=== PATIENT | female | born 1940 | race Caucasian/White ===

== ENCOUNTER 2018-12-26 14:43 | Emergency (ER) | payer MEDICARE, OTHER, SELFPAY ==
[2018-12-26 14:47] VITALS: BP 118/69; PULSE 139; RESP 15; TEMP 36.2; O2SAT 100
--- NOTE | 2018-12-26 14:54 | DI.RAD.S_ITS ---
PROCEDURE: XR CHEST 1V INDICATIONS: afib TECHNIQUE: One view of the chest was acquired. COMPARISON: None. FINDINGS: Surgical changes and devices: None. Lungs and pleura: Lungs are clear. No pleural effusions or pneumothorax. Mediastinum: Mediastinal contours appear normal. Heart size is normal. There is aortic atherosclerosis. Bones and chest wall: No suspicious bony lesions. Overlying soft tissues appear unremarkable. IMPRESSION: Unremarkable chest. No acute cardiopulmonary process is evident. Dictated by: Emmanuel Turner M.D. on 12/26/2018 at 14:23 Approved by: Emmanuel Turner M.D. on 12/26/2018 at 14:37
[2018-12-26 15:12] LABS: Add Manual Diff / Slide Review NO; Basophils Absolute Auto 100 /uL (0-100); Basophils Percent Auto 0.9 % (0-2); Eosinophils Absolute Auto 0 /uL (0-450); Eosinophils Percent Auto 0.2 % (2-4); Hematocrit 41.3 % (36-46); Lymphocytes Absolute Auto 1500 /uL (1100-4500); Lymphocytes Percent Auto 16.4 % (25-40); Mean Corpuscular HGB Conc 33.8 % (30-36); Mean Corpuscular Hemoglobin 30.3 PG (26-34); Mean Corpuscular Volume 89.4 fL (80-100); Monocytes Absolute Auto 700 /uL (0-900); Monocytes Percent Auto 7.8 % (3-14); Neutrophils Absolute Auto 6700 /uL (1500-7000); Neutrophils Percent Auto 74.7 % (50-75); Platelet Count 215 X10^3/uL (150-400); Red Blood Cell Count 4.62 X10^6/uL (4.0-5.2); Red Cell Distribution Width 14.1 % (11.6-14.8); White Blood Cell Count 8.9 X10^3/uL (4.5-11.0)
--- NOTE | 2018-12-26 15:21 | ED_ITS ---
HPI - Arrhythmia/Palpitations General Chief Complaint: Arrhythmia/Palpitations Stated Complaint: Rapid Heart rate and chest pain sent from [facility] Time Seen by Provider: 12/26/18 15:18 Source: patient Mode of arrival: ambulatory Limitations: no limitations History of Present Illness HPI narrative: Patient a 78-year-old female who presents with heart palpitations. She has a history of atrial fibrillation, she states that just started in November of 2018. She was given metoprolol she says she converted back to sinus rhythm started taking an aspirin daily she has not had any problems until today. She swam 60 laps today and started her heart beating irregular. His she states that she does check her heart rate while swimming usually about 72 today was much more she felt an ache in her left shoulder just like she did previously. [place]. She continues to be in atrial fibrillation rate 130. MD complaint: rapid heart beat and heart racing Duration: constant Arrhythmia history: atrial fibrillation Related Data Home Medications Medication Instructions Recorded Confirmed aspirin 325 mg PO DAILY 12/26/18 12/26/18 clindamycin phosphate 1 applic TOPICAL DIRECTED 12/26/18 12/26/18 levothyroxine [Synthroid] 50 mcg PO DAILY 12/26/18 12/26/18 metoprolol tartrate 25 mg PO DAILY 12/26/18 12/26/18 Allergies Allergy/AdvReac Type Severity Reaction Status Date / Time Penicillins [PENICILLINS] Allergy Intermediate hives Verified 12/26/18 16:06 Review of Systems Review of Systems ROS Unobtainable: All systems reviewed & are unremarkable except as noted in HPI and below Constitutional Denies chills, Denies fever(s), Denies lethargy and Denies weakness Eyes Denies change in vision, Denies eye discharge, Denies irritation and Denies loss of vision ENT Ears, Nose, Mouth, and Throat: Denies change in voice, Denies neck pain and Denies sore throat Cardiovascular Reports as per HPI, Denies dyspnea and Denies dyspnea on exertion Respiratory Denies cough, Denies dyspnea, Denies dyspnea on exertion and Denies wheezing Gastrointestinal Gastrointestinal: Denies abdominal pain, Denies change in bowel habits, Denies diarrhea, Denies nausea and Denies vomiting Genitourinary Denies hematuria, Denies flank pain, Denies urinary incontinence and Denies urinary urgency Musculoskeletal Denies neck pain Integumentary/Breasts Denies pruritus, Denies erythema, Denies rash and Denies wounds Neurologic Denies loss of vision and Denies weakness Allergic/Immunologic Denies wheezing [facility] Medical History (Updated 12/26/18 @ 17:00 by Inez Chance DO) Atrial fibrillation (Acute) Surgical History (Updated 01/29/18 @ 06:35 by Conversion Provider) History of cataract removal with insertion of prosthetic lens Status post hysterectomy Family History (Updated 03/07/17 @ 00:00 by Conversion Provider) Father Diabetes mellitus Heart disease Social History (Updated 12/26/18 @ 16:00 by Inez Chance DO) Smoking Status: Never smoker alcohol intake: never substance use type: does not use Family History (Updated 03/07/17 @ 00:00 by Conversion Provider) Father Diabetes mellitus Heart disease Social History (Updated 12/26/18 @ 16:00 by Inez Chance DO) Smoking Status: Never smoker alcohol intake: never substance use type: does not use Exam Initial Vital Signs Initial Vital Signs: Vital Signs Temperature 97.1 F L 12/26/18 14:47 Pulse Rate 139 H 12/26/18 14:47 Respiratory Rate 15 12/26/18 14:47 Blood Pressure 118/69 12/26/18 14:47 Pulse Oximetry 100 12/26/18 14:47 GENERAL: Well-appearing, well-nourished and in no acute distress. HEENT: Head atraumatic,EOMI, pupils reactive, CARDIOVASCULAR: Irregular tachycardic RESPIRATORY: Breath sounds equal bilaterally, no wheezes rales or rhonchi. ABDOMEN: Soft, nontender. Normoactive bowel sounds all 4 quadrants. No guarding or rebound. EXTREMITIES: Normal range of motion, no clubbing or edema. Neurovascularly intact NEUROLOGICAL: Alert and oriented x4.Normal gait and speech. Cranial nerves II through XII grossly intact. SKIN: Warm, dry, no laceration, no petechiae, no rashes or lesions. Scores CHADS-VASc Congestive heart failure: no Hypertension: no Age 75 years or older: yes Diabetes mellitus: no Stroke, TIA, or TE: no Vascular disease: no Age 65 to 74 years: no Sex category (female): Female CHADS-VASc Score: 3 Course Orders Ordered: Discontinued Medications Diltiazem HCl (Cardizem) 20 mg IV NOW ONE Stop: 12/26/18 15:50 Last Admin: 12/26/18 15:55 Dose: 20 mg Sodium Chloride (Normal Saline 0.9%) 1,000 mls @ 1,000 mls/hr IV BOLUS ONE Stop: 12/26/18 16:48 Last Infusion: 12/26/18 17:02 Dose: 0 mls/hr Admin: 12/26/18 15:55 Dose: 1,000 mls/hr Vital Signs - 8 hr 12/26/18 14:47 12/26/18 15:55 12/26/18 16:07 Temperature 97.1 F L Pulse Rate 139 H 144 H 88 Respiratory Rate 15 16 15 Blood Pressure 118/69 103/60 Blood Pressure [Right Arm] 130/65 119/65 Pulse Oximetry 100 100 100 12/26/18 16:42 12/26/18 16:46 Temperature Pulse Rate 59 L 62 Respiratory Rate 15 15 Blood Pressure Blood Pressure [Right Arm] 92/51 L 109/52 L Pulse Oximetry 99 99 MDM - Arrhythmia/Palpitations Lab Data Attestation: I reviewed the patient's lab results. Result diagrams: 12/26/18 15:00 12/26/18 15:00 Lab Results 12/26/18 12/26/18 12/26/18 Range/Units 15:00 15:00 15:00 WBC 8.9 (4.5-11.0) X10^3/uL RBC 4.62 (4.0-5.2) X10^6/uL Hgb 14.0 (12.0-16.0) g/dL Hct 41.3 (36-46) % MCV 89.4 (80-100) fL MCH 30.3 (26-34) PG MCHC 33.8 (30-36) % RDW 14.1 (11.6-14.8) % Plt Count 215 (150-400) X10^3/uL Neut % (Auto) 74.7 (50-75) % Lymph % (Auto) 16.4 L (25-40) % Starr % (Auto) 7.8 (3-14) % Eos % (Auto) 0.2 L (2-4) % Baso % (Auto) 0.9 (0-2) % Neut # (Auto) 6700 (0135-1929) /uL Lymph # (Auto) 1500 (6916-7839) /uL Starr # (Auto) 700 (0-900) /uL Eos # (Auto) 0 (0-450) /uL Baso # (Auto) 100 (0-100) /uL Sodium 140 (137-145) mmol/L Potassium 4.0 (3.4-5.1) mmol/L Chloride 106 (98-107) mmol/L Carbon Dioxide 26 (22-32) mmol/L BUN 25 H (7-17) mg/dL Creatinine 0.80 (0.52-1.04) mg/dL Estimated GFR > 60.0 (>60) mL/min BUN/Creatinine Ratio 31.3 H (6-22) Glucose 132 H (80-110) mg/dL Calcium 9.5 (8.4-10.2) mg/dL Magnesium 2.1 (1.6-2.3) mg/dL Total Creatine Kinase 60 (30-135) U/L CK-MB (CK-2) TNP CK-MB (CK-2) Rel Index TNP Troponin I < 0.012 (0.01-0.034) ng/mL TSH 3.39 (0.47-4.68) uIU/mL Imaging Data Chest x-ray: Radiologist's impression: PROCEDURE: XR CHEST 1V INDICATIONS: afib TECHNIQUE: One view of the chest was acquired. COMPARISON: None. FINDINGS: Surgical changes and devices: None. Lungs and pleura: Lungs are clear. No pleural effusions or pneumothorax. Mediastinum: Mediastinal contours appear normal. Heart size is normal. There is aortic atherosclerosis. Bones and chest wall: No suspicious bony lesions. Overlying soft tissues appear unremarkable. IMPRESSION: Unremarkable chest. No acute cardiopulmonary process is evident. Dictated by: Emmanuel Turner M.D. on 12/26/2018 at 14:23 Approved by: Emmanuel Turner M.D. on 12/26/2018 at 14:37 ECG Data Attestation: I personally reviewed and interpreted this ECG as follows: Prior ECG tracings: not available for review Interpretation: 1. Atrial fibrillation rate [address] changes. EKG 2. Sinus rhythm rate 58 VT interval [address] changes no T-wave inversions MDM Narrative Medical decision making narrative: Patient was given Cardizem on IV fluids and converted on her own. Patient has an appointment with perianesthesia nurse in a week or 2. Dr. Campo At this time recommend she continue her current regimen of metoprolol and aspirin. Patient understands risk of stroke and returning to the ED if symptoms worsen Discharge Plan Departure Patient Disposition: Home Clinical Impression: Atrial fibrillation Qualifiers: Atrial fibrillation type: paroxysmal Qualified Code(s): I48.0 - Paroxysmal atrial fibrillation Discharge Date/Time: 12/26/18 17:11 Interventions: ED Discharge Assessment Last Done: 12/26/18 17:03 Instructions: DI for Atrial Fibrillation Activity Restrictions/Additional Instructions: *You have been diagnosed with atrial fibrillation *What to do: You may need further medication adjustment please talk of about this with her perianesthesia nurse or PCP *Continue to take medications as directed -aspirin 81 mg once a day *Follow up with your primary care provider in 2-3 days *Return to ER if you should have heart palpitations, dizziness, lightheadedness, shortness of or any new, worsening or concerning symptoms Prescriptions: No Action levothyroxine [Synthroid] 50 mcg tablet 50 mcg PO DAILY RF: 0 clindamycin phosphate 1 % lotion 1 applic topical DIRECTED RF: 0 metoprolol tartrate 25 mg tablet 25 mg PO DAILY RF: 0 aspirin 325 mg Tablet 325 mg PO DAILY RF: 0 Referrals: Bernarda Wood MD [Primary Care Provider] -
[2018-12-26 15:25] LABS: BUN Creatinine Ratio 31.3 (6-22); Blood Urea Nitrogen 25 mg/dL (7-17); Calcium 9.5 mg/dL (8.4-10.2); Carbon Dioxide 26 mmol/L (22-32); Chloride 106 mmol/L (98-107); Creatine Kinase 60 U/L (30-135); Estimated Glomerular Filt Rate > 60.0 mL/min (>60); Glucose 132 mg/dL (80-110); HEMOLYSIS < 15 (0-50); Magnesium 2.1 mg/dL (1.6-2.3); Sodium 140 mmol/L (137-145)
[2018-12-26 15:36] LABS: Troponin I < 0.012 ng/mL (0.01-0.034)
[2018-12-26 15:55] VITALS: BP 103/60; BP 130/65; PULSE 135; PULSE 144; RESP 16; O2SAT 100
[2018-12-26] MEDS: dilTIAZem 5 MG/ML SDV 20 MG IV (15:55)
[2018-12-26] MEDS: SODIUM CHLORIDE 0.9% 1,000 ML 1000 ML IV (15:55)
[2018-12-26 16:06] LABS: Thyroid Stimulating Hormone 3.39 uIU/mL (0.47-4.68)
[2018-12-26 16:07] VITALS: BP 119/65; PULSE 88; RESP 15; O2SAT 100
[2018-12-26 16:42] VITALS: BP 92/51; PULSE 59; RESP 15; O2SAT 99
[2018-12-26 16:46] VITALS: BP 109/52; PULSE 62; RESP 15; O2SAT 99
== END 2018-12-26 17:11 | disposition home or self-care (01) ==
PROVIDERS: Emergency Provider Emergency Medicine; PCP Family Medicine
DX: I48.0 Paroxysmal atrial fibrillation (principal)
CPT/HCPCS: 36591; 71045; 80048; 82550; 83735; 84443; 84484; 85025; 93005; 96361; 96374; 99283; 99285

== ENCOUNTER → 2021-08-02 10:04 | Outpatient (CLI) | payer MEDICARE, OTHER, SELFPAY ==
[2021-08-02 19:23] LABS: BUN Creatinine Ratio 30.3 (6-22); Blood Urea Nitrogen 23 mg/dL (7-17); Calcium 9.4 mg/dL (8.4-10.2); Carbon Dioxide 31 mmol/L (22-32); Chloride 103 mmol/L (98-107); Estimated Glomerular Filt Rate > 60.0 mL/min (>60); Glucose 79 mg/dL (80-110); HEMOLYSIS 35 (0-50); Potassium 4.5 mmol/L (3.4-5.1); Sodium 140 mmol/L (137-145)
== END ==
PROVIDERS: PCP Family Medicine; Visit Provider Nurse Practitioner
DX: Z51.81 Encounter for therapeutic drug level monitoring (principal); Z79.899 Other long term (current) drug therapy
CPT/HCPCS: 80048

== ENCOUNTER → 2021-11-22 11:07 | Outpatient (CLI) | payer MEDICARE, OTHER, SELFPAY ==
[2021-11-22 19:16] LABS: BUN Creatinine Ratio 28.6 (6-22); Blood Urea Nitrogen 22 mg/dL (7-17); Calcium 9.6 mg/dL (8.4-10.2); Carbon Dioxide 35 mmol/L (22-32); Chloride 104 mmol/L (98-107); Estimated Glomerular Filt Rate > 60.0 mL/min (>60); Glucose 90 mg/dL (80-110); HEMOLYSIS < 15 (0-50); Potassium 4.4 mmol/L (3.4-5.1); Sodium 139 mmol/L (137-145)
[2021-11-22 19:45] LABS: Thyroid Stimulating Hormone 2.85 uIU/mL (0.47-4.68)
== END ==
PROVIDERS: Nurse Practitioner; PCP Family Medicine; Visit Provider Family Medicine
DX: E03.9 Hypothyroidism, unspecified (principal); Z51.81 Encounter for therapeutic drug level monitoring; Z79.899 Other long term (current) drug therapy
CPT/HCPCS: 80048; 84443

== ENCOUNTER → 2022-02-14 09:20 | Outpatient (CLI) | payer MEDICARE, OTHER, SELFPAY ==
[2022-02-14 19:09] LABS: BUN Creatinine Ratio 27.2 (6-22); Blood Urea Nitrogen 22 mg/dL (7-17); Calcium 9.3 mg/dL (8.4-10.2); Carbon Dioxide 30 mmol/L (22-32); Chloride 103 mmol/L (98-107); Estimated Glomerular Filt Rate > 60 mL/min (>60); Glucose 129 mg/dL (80-110); HEMOLYSIS 16 (0-50); Potassium 4.4 mmol/L (3.4-5.1); Sodium 139 mmol/L (137-145)
== END ==
PROVIDERS: PCP Family Medicine; Visit Provider Nurse Practitioner
DX: Z51.81 Encounter for therapeutic drug level monitoring (principal); Z79.899 Other long term (current) drug therapy
CPT/HCPCS: 80048

== ENCOUNTER → 2022-05-15 11:53 | Outpatient (CLI) | payer MEDICARE, OTHER, SELFPAY ==
[2022-05-15 21:21] LABS: Alanine Aminotransferase 29 IU/L (<35); Albumin 3.7 g/dL (3.5-5.0); Albumin Globulin Ratio 1.3 (1.0-2.8); Alkaline Phosphatase 71 U/L (38-126); Aspartate Aminotransferase 37 IU/L (14-36); BUN Creatinine Ratio 29.9 (6-22); Bilirubin Total 0.4 mg/dL (0.2-1.3); Blood Urea Nitrogen 26 mg/dL (7-17); Calcium 9.1 mg/dL (8.4-10.2); Carbon Dioxide 31 mmol/L (22-32); Chloride 101 mmol/L (98-107); Estimated Glomerular Filt Rate > 60 mL/min (>60); Globulin 2.8 g/dL (1.7-4.1); Glucose 110 mg/dL (80-110); HEMOLYSIS < 15 (0-50); Potassium 4.6 mmol/L (3.4-5.1); Sodium 137 mmol/L (137-145); Total Protein 6.5 g/dL (6.3-8.2)
== END ==
PROVIDERS: PCP Family Medicine; Visit Provider Nurse Practitioner Acute Care
DX: Z51.81 Encounter for therapeutic drug level monitoring (principal); Z79.01 Long term (current) use of anticoagulants; Z79.899 Other long term (current) drug therapy
CPT/HCPCS: 80053

== ENCOUNTER → 2022-08-02 10:25 | Outpatient (CLI) | payer MEDICARE, OTHER, SELFPAY ==
[2022-08-02 19:47] LABS: Alanine Aminotransferase 29 IU/L (<35); Albumin 3.6 g/dL (3.5-5.0); Albumin Globulin Ratio 1.2 (1.0-2.8); Alkaline Phosphatase 82 U/L (38-126); Aspartate Aminotransferase 37 IU/L (14-36); BUN Creatinine Ratio 31.1 (6-22); Bilirubin Total 0.4 mg/dL (0.2-1.3); Blood Urea Nitrogen 28 mg/dL (7-17); Calcium 9.1 mg/dL (8.4-10.2); Carbon Dioxide 32 mmol/L (22-32); Chloride 101 mmol/L (98-107); Estimated Glomerular Filt Rate > 60 mL/min (>60); Globulin 2.9 g/dL (1.7-4.1); Glucose 93 mg/dL (80-110); HEMOLYSIS < 15 (0-50); Potassium 4.7 mmol/L (3.4-5.1); Sodium 138 mmol/L (137-145); Total Protein 6.5 g/dL (6.3-8.2)
== END ==
PROVIDERS: PCP Family Medicine
DX: Z51.81 Encounter for therapeutic drug level monitoring (principal); Z79.01 Long term (current) use of anticoagulants; Z79.899 Other long term (current) drug therapy
CPT/HCPCS: 80053

== ENCOUNTER → 2022-10-19 09:05 | Outpatient (CLI) | payer MEDICARE, OTHER, SELFPAY ==
[2022-10-19 20:29] LABS: Add Manual Diff / Slide Review NO; Alanine Aminotransferase 41 IU/L (<35); Alkaline Phosphatase 87 U/L (38-126); Aspartate Aminotransferase 48 IU/L (14-36); BUN Creatinine Ratio 26.7 (6-22); Basophils Absolute Auto 0 /uL (0-100); Basophils Percent Auto 0.4 % (0-2); Bilirubin Total 0.6 mg/dL (0.2-1.3); Blood Urea Nitrogen 23 mg/dL (7-17); Calcium 9.2 mg/dL (8.4-10.2); Carbon Dioxide 32 mmol/L (22-32); Chloride 102 mmol/L (98-107); Cholesterol 227 mg/dL (140-199); Eosinophils Absolute Auto 100 /uL (0-450); Eosinophils Percent Auto 1.4 % (2-4); Estimated Glomerular Filt Rate > 60 mL/min (>60); Glucose 87 mg/dL (80-110); HDL Cholesterol 80 mg/dL (40-60); HEMOLYSIS < 15 (0-50); Hematocrit 38.1 % (36-46); Hemoglobin 12.4 g/dL (12.0-16.0); LDL Cholesterol Calculated 136 mg/dL (<100); Lymphocytes Absolute Auto 1200 /uL (1100-4500); Lymphocytes Percent Auto 23.3 % (25-40); Magnesium 2.3 mg/dL (1.6-2.3); Mean Corpuscular HGB Conc 32.6 % (30-36); Mean Corpuscular Hemoglobin 29.7 PG (26-34); Monocytes Absolute Auto 700 /uL (0-900); Monocytes Percent Auto 14.5 % (3-14); Neutrophils Absolute Auto 3000 /uL (1500-7000); Neutrophils Percent Auto 60.4 % (50-75); Platelet Count 167 X10^3/uL (150-400); Potassium 4.6 mmol/L (3.4-5.1); Red Blood Cell Count 4.18 X10^6/uL (4.0-5.2); Red Cell Distribution Width 14.3 % (11.6-14.8); Sodium 139 mmol/L (137-145); Total Protein 6.9 g/dL (6.3-8.2); Triglycerides 54 mg/dL (35-150); White Blood Cell Count 4.9 X10^3/uL (4.5-11.0)
[2022-10-19 20:51] LABS: Free T4, Direct Thyroxine 1.37 ng/dL (0.78-2.19)
[2022-10-19 21:05] LABS: Thyroid Stimulating Hormone 3.58 uIU/mL (0.47-4.68)
[2022-10-20 16:53] LABS: Albumin 3.9 g/dL (3.5-5.0); Albumin Globulin Ratio 1.3 (1.0-2.8)
== END ==
PROVIDERS: PCP Family Medicine; Visit Provider Nurse Practitioner
DX: I48.0 Paroxysmal atrial fibrillation (principal); I10 Essential (primary) hypertension; I48.20 Chronic atrial fibrillation, unspecified; Z79.01 Long term (current) use of anticoagulants; Z79.899 Other long term (current) drug therapy
CPT/HCPCS: 80053; 80061; 83735; 84439; 84443; 85025

== ENCOUNTER → 2022-11-15 14:31 | Outpatient (CLI) | payer MEDICARE, OTHER, SELFPAY ==
[2022-11-15 19:42] LABS: C-Reactive Protein Quant < 0.5 mg/dL (<1.0)
[2022-11-15 19:58] LABS: Erythrocyte Sedimentation Rate 18 MM/HR (0-20)
[2022-11-15 20:14] LABS: Ferritin 42 ng/mL (11-264)
[2022-11-16 16:16] LABS: Hepatitis B Surface Antigen NEGATIVE s/c (NEGATIVE)
[2022-11-16 17:40] LABS: Hep C Virus Ab w/Reflex Quant REACTIVE s/c (NEGATIVE)
[2022-11-21 15:42] LABS: ANA Screen, IFA Negative (.)
== END ==
PROVIDERS: PCP Family Medicine; Visit Provider Family Medicine
DX: M25.552 Pain in left hip (principal); R79.89 Other specified abnormal findings of blood chemistry; Z82.49 Family history of ischemic heart disease and other diseases of the circulatory system; G89.29 Other chronic pain
CPT/HCPCS: 82728; 85651; 86038; 86140; 86803; 87340; 87522

== ENCOUNTER → 2023-01-31 10:25 | Outpatient (CLI) | payer MEDICARE, OTHER, SELFPAY ==
[2023-01-31 20:13] LABS: BUN Creatinine Ratio 25.8 (6-22); Blood Urea Nitrogen 23 mg/dL (7-17); Calcium 9.2 mg/dL (8.4-10.2); Carbon Dioxide 31 mmol/L (22-32); Chloride 100 mmol/L (98-107); Estimated Glomerular Filt Rate > 60 mL/min (>60); Glucose 89 mg/dL (80-110); HEMOLYSIS < 15 (0-50); Potassium 4.7 mmol/L (3.4-5.1); Sodium 137 mmol/L (137-145)
== END ==
PROVIDERS: PCP Family Medicine; Visit Provider Nurse Practitioner
DX: I48.0 Paroxysmal atrial fibrillation (principal); Z51.81 Encounter for therapeutic drug level monitoring; Z79.899 Other long term (current) drug therapy
CPT/HCPCS: 80048

== ENCOUNTER → 2023-03-01 11:49 | Outpatient (CLI) | payer MEDICARE, OTHER, SELFPAY ==
[2023-03-01 19:54] LABS: Add Manual Diff / Slide Review NO; Basophils Absolute Auto 0 /uL (0-100); Basophils Percent Auto 0.3 % (0-2); Eosinophils Absolute Auto 100 /uL (0-450); Eosinophils Percent Auto 2.1 % (2-4); Hematocrit 36.2 % (36-46); Hemoglobin 12.3 g/dL (12.0-16.0); Lymphocytes Absolute Auto 1200 /uL (1100-4500); Lymphocytes Percent Auto 17.2 % (25-40); Mean Corpuscular HGB Conc 34.1 % (30-36); Mean Corpuscular Hemoglobin 30.4 PG (26-34); Monocytes Absolute Auto 1200 /uL (0-900); Monocytes Percent Auto 17.2 % (3-14); Neutrophils Absolute Auto 4400 /uL (1500-7000); Neutrophils Percent Auto 63.2 % (50-75); Platelet Count 181 X10^3/uL (150-400); Red Blood Cell Count 4.07 X10^6/uL (4.0-5.2); Red Cell Distribution Width 14.2 % (11.6-14.8); White Blood Cell Count 6.9 X10^3/uL (4.5-11.0)
[2023-03-01 20:05] LABS: Alanine Aminotransferase 19 IU/L (<35); Albumin 3.8 g/dL (3.5-5.0); Albumin Globulin Ratio 1.2 (1.0-2.8); Alkaline Phosphatase 75 U/L (38-126); Aspartate Aminotransferase 31 IU/L (14-36); BUN Creatinine Ratio 31.3 (6-22); Bilirubin Total 0.4 mg/dL (0.2-1.3); Blood Urea Nitrogen 26 mg/dL (7-17); Calcium 9.1 mg/dL (8.4-10.2); Carbon Dioxide 31 mmol/L (22-32); Chloride 98 mmol/L (98-107); Estimated Glomerular Filt Rate > 60 mL/min (>60); Globulin 3.1 g/dL (1.7-4.1); Glucose 83 mg/dL (80-110); HEMOLYSIS < 15 (0-50); Potassium 4.8 mmol/L (3.4-5.1); Sodium 135 mmol/L (137-145); Total Protein 6.9 g/dL (6.3-8.2)
[2023-03-01 20:33] LABS: TSH w/ Reflex to FT4 2.62 uIU/mL (0.47-4.68)
== END ==
PROVIDERS: PCP Family Medicine; Visit Provider Family Medicine
DX: I34.0 Nonrheumatic mitral (valve) insufficiency (principal); I10 Essential (primary) hypertension; R79.89 Other specified abnormal findings of blood chemistry; E78.2 Mixed hyperlipidemia; R74.8 Abnormal levels of other serum enzymes; Z79.899 Other long term (current) drug therapy; E03.9 Hypothyroidism, unspecified
CPT/HCPCS: 80053; 84443; 85025

== ENCOUNTER → 2023-03-07 14:18 | Outpatient (CLI) | payer MEDICARE, OTHER, SELFPAY ==
--- NOTE | 2023-03-07 14:20 | DI.RAD.S_ITS ---
Bone Density Report Name: BROOK BEJARANO Age: 82 Sex: Female Ethnicity: White Date of : 1940 Indication: postmenopausal; screening for osteoporosis; prior fracture; Referring Provider: LORETTA REYNOSO Study: Bone densitometry was performed. Exam Date: March 07, 2023 Accession number: [id number] Bone Density: Region BMD T-score Z-score Classification AP Spine(L1-L4) 0.899 -1.3 1.4 Osteopenia Femoral Neck (Left) 0.777 -0.7 1.7 Normal Total Hip (Left) 0.652 -2.4 -0.3 Osteopenia Femoral Neck (Right) 0.763 -0.8 1.6 Normal Total Hip (Right) 0.622 -2.6 -0.5 Osteoporosis Total Hip Mean 0.637 -2.5 -0.4 Osteoporosis World Health Organization criteria for BMD impression classify patients as: Normal (T-score at or above -1.0), Osteopenia (T-score between -1.0 and -2.5), or Osteoporosis (T-score at or below -2.5). 10-year Fracture Risk: FRAX not reported because: Some T-score for Spine Total or Hip Total or Femoral Neck at or below -2.5 Prior hip or vertebral fracture Impression: The patient has established osteoporosis, based on the Right Total Hip T-score and the existence of a prior fracture. The patient has risk factors, including: previous fracture. Discussion: HIGH RISK OF FRACTURE. BONE DENSITY IS UNDESIRABLY LOW AT ONE OR MORE SKELETAL SITES, CONSISTENT WITH POSTMENOPAUSAL OSTEOPOROSIS. This patient's lowest T-score, in a patient who has previously fractured, meets the World Health Organization's (WHO) criteria for severe osteoporosis. In untreated patients, the risk of osteoporotic fracture increases approximately two-fold for each 1.0 SD decrease in T-score. Low bone density is not the only risk factor for fracture; also consider factors such as patient's age, frailty or poor health, risk of falling, risk of injury, previous osteoporotic fracture, family history of osteoporosis, cigarette smoking, low body weight, etc. Not everyone with low bone mineral density has osteoporosis; osteomalacia and other metabolic bone disorders should also be considered. Patients who have osteoporosis should be evaluated for specific diseases and conditions (secondary causes) that may cause or contribute to bone loss. The [place] Association [employer] Endocrinologists (AACE) and National Osteoporosis Foundation (NOF) recommend pharmacologic intervention for all postmenopausal women with a previous hip or vertebral fracture and a T-score in this range. The patient should follow a healthful lifestyle (good nutrition with adequate calcium and vitamin D, and appropriate weight-bearing exercise). Follow-Up: Consider a repeat BMD and Vertebral Fracture Assessment (VFA) exam in 2 years or sooner if medically necessary, to reassess this patient's status. Reported by: YULISSA LEVINE MD on 03/07/2023 2:39:00 PM.
== END ==
PROVIDERS: PCP Family Medicine; Referring Provider Family Medicine; Visit Provider Family Medicine
DX: Z78.0 Asymptomatic menopausal state (principal); Z13.820 Encounter for screening for osteoporosis; M81.0 Age-related osteoporosis without current pathological fracture
CPT/HCPCS: 77080

== ENCOUNTER → 2023-04-11 14:40 | Outpatient (CLI) | payer MEDICARE, OTHER, SELFPAY ==
[2023-04-11 19:44] LABS: BUN Creatinine Ratio 36.6 (6-22); Blood Urea Nitrogen 30 mg/dL (7-17); Calcium 9.2 mg/dL (8.4-10.2); Carbon Dioxide 31 mmol/L (22-32); Chloride 99 mmol/L (98-107); Estimated Glomerular Filt Rate > 60 mL/min (>60); Glucose 85 mg/dL (80-110); HEMOLYSIS < 15 (0-50); Potassium 4.8 mmol/L (3.4-5.1); Sodium 135 mmol/L (137-145)
== END ==
PROVIDERS: PCP Family Medicine; Visit Provider Nurse Practitioner
DX: I48.0 Paroxysmal atrial fibrillation (principal); Z51.81 Encounter for therapeutic drug level monitoring; Z79.899 Other long term (current) drug therapy
CPT/HCPCS: 80048

== ENCOUNTER → 2023-07-30 11:56 | Outpatient (CLI) | payer MEDICARE, OTHER, SELFPAY ==
[2023-07-30 19:49] LABS: BUN Creatinine Ratio 34.1 (6-22); Blood Urea Nitrogen 29 mg/dL (7-17); Calcium 9.5 mg/dL (8.4-10.2); Carbon Dioxide 30 mmol/L (22-32); Chloride 98 mmol/L (98-107); Estimated Glomerular Filt Rate > 60 mL/min (>60); Glucose 133 mg/dL (80-110); HEMOLYSIS < 15 (0-50); Potassium 4.2 mmol/L (3.4-5.1); Sodium 135 mmol/L (137-145)
== END ==
PROVIDERS: PCP Family Medicine; Visit Provider Nurse Practitioner
DX: I48.0 Paroxysmal atrial fibrillation (principal); Z51.81 Encounter for therapeutic drug level monitoring; Z79.899 Other long term (current) drug therapy
CPT/HCPCS: 80048

== ENCOUNTER → 2023-09-19 10:59 | Outpatient (CLI) | payer MEDICARE, OTHER, SELFPAY ==
[2023-09-19 19:42] LABS: Add Manual Diff / Slide Review NO; Appearance Urine UA CLEAR; Basophils Absolute Auto 100 /uL (0-100); Basophils Percent Auto 0.8 % (0-2); Bilirubin Urine UA NEGATIVE (NEGATIVE); Color Urine UA YELLOW; Eosinophils Absolute Auto 0 /uL (0-450); Eosinophils Percent Auto 0.6 % (2-4); Glucose Urine UA NEGATIVE (Negative); Hematocrit 36.4 % (36-46); Hemoglobin 12.2 g/dL (12.0-16.0); Ketones Urine UA TRACE (NEGATIVE); Leukocyte Esterase Urine UA NEGATIVE (NEGATIVE); Lymphocytes Absolute Auto 1200 /uL (1100-4500); Lymphocytes Percent Auto 18.8 % (25-40); Mean Corpuscular HGB Conc 33.6 % (30-36); Mean Corpuscular Hemoglobin 30.1 PG (26-34); Mean Corpuscular Volume 89.8 fL (80-100); Monocytes Absolute Auto 800 /uL (0-900); Neutrophils Absolute Auto 4500 /uL (1500-7000); Neutrophils Percent Auto 67.8 % (50-75); Nitrite Urine UA NEGATIVE (Negative); Occult Blood Urine UA NEGATIVE (Negative); Platelet Count 203 X10^3/uL (150-400); Protein Urine UA NEGATIVE (Negative); Red Blood Cell Count 4.05 X10^6/uL (4.0-5.2); Red Cell Distribution Width 14.4 % (11.6-14.8); Urobilinogen Urine UA 0.2 E.U./dL (0.2); White Blood Cell Count 6.6 X10^3/uL (4.5-11.0)
[2023-09-19 19:45] LABS: BUN Creatinine Ratio 38.7 (6-22); Blood Urea Nitrogen 29 mg/dL (7-17); Calcium 9.8 mg/dL (8.4-10.2); Carbon Dioxide 30 mmol/L (22-32); Chloride 98 mmol/L (98-107); Estimated Glomerular Filt Rate > 60 mL/min (>60); Glucose 82 mg/dL (80-110); HEMOLYSIS < 15 (0-50); Potassium 4.8 mmol/L (3.4-5.1); Sodium 134 mmol/L (137-145)
[2023-09-19 19:56] LABS: Hemoglobin A1C% w Est Avg Glu 5.4 % (4.0-6.0)
[2023-09-19 19:57] LABS: Bacteria Urine None Seen; Culture Indicated Urine Cult Not Indicated; RBC Urine 0-1/HPF (0-5/HPF); Squamous Epithelial Cell Urine 0-1 /HPF (0-5/HPF); WBC Urine 0-1/HPF (0-5/HPF)
== END ==
PROVIDERS: PCP Family Medicine; Visit Provider Orthopaedic Surgery
DX: Z01.812 Encounter for preprocedural laboratory examination (principal); R73.9 Hyperglycemia, unspecified; N39.0 Urinary tract infection, site not specified
CPT/HCPCS: 80048; 81001; 83036; 85025

== ENCOUNTER → 2023-11-14 11:46 | Outpatient (CLI) | payer MEDICARE, OTHER, SELFPAY ==
[2023-11-14 20:07] LABS: BUN Creatinine Ratio 37.5 (6-22); Blood Urea Nitrogen 27 mg/dL (7-17); Calcium 9.7 mg/dL (8.4-10.2); Carbon Dioxide 29 mmol/L (22-32); Chloride 101 mmol/L (98-107); Estimated Glomerular Filt Rate > 60 mL/min (>60); Glucose 115 mg/dL (80-110); HEMOLYSIS < 15 (0-50); Potassium 4.5 mmol/L (3.4-5.1); Sodium 138 mmol/L (137-145)
== END ==
PROVIDERS: PCP Family Medicine; Visit Provider Nurse Practitioner
DX: I48.0 Paroxysmal atrial fibrillation (principal); Z51.81 Encounter for therapeutic drug level monitoring; Z79.899 Other long term (current) drug therapy
CPT/HCPCS: 80048

== ENCOUNTER 2023-12-11 06:02 | Day surgery (SDC) | payer MEDICARE, OTHER, SELFPAY ==
[2023-11-28 08:53] VITALS: BMI 22.7
[2023-12-11] VITALS (15 sets, daily range): BP systolic 111–147; BP diastolic 44–71; PULSE 57–72; RESP 10–18; TEMP 35.8–36.8; O2SAT 96–100; BMI 22.7
--- NOTE | 2023-12-11 06:00 | DI.RAD.S_ITS ---
PROCEDURE: XR HIP W PEL IF DONE RT 2V INDICATIONS: INNER OP ANTERIOR TECHNIQUE: Fluoroscopic guidance utilized for a right total hip arthroplasty. COMPARISON: None. FINDINGS: Fluoroscopic images submitted for a right total hip arthroplasty. Please see operative note for further discussion. IMPRESSION: Fluoroscopic guidance. Dictated by: Cameron Danielson M.D. on 12/11/2023 at 11:46 Approved by: Cameron Danielson M.D. on 12/11/2023 at 11:47
[2023-12-11] MEDS: LACTATED RINGERS 1,000 ML 42 ML IV (06:42)
[2023-12-11] MEDS: CELECOXIB 200 MG CAPSULE PO (07:29)
[2023-12-11] MEDS: VANCOMYCIN 1,000 MG/200 ML PIGGYBACK 200 MG IV (07:31)
[2023-12-11] MEDS: ACETAMINOPHEN 325 MG TABLET 975 MG PO (07:37)
--- NOTE | 2023-12-11 07:54 | PM.PREOP ---
Pre-operative Note Interval Note History & Physical reviewed/Exam performed by Physician: Yes Changes to H&P: No
--- NOTE | 2023-12-11 07:56 | P.OP_ITS ---
Operative Date/Time/Diagnoses Date of procedure: 12/11/23 Time of procedure: 08:10 Pre-op diagnosis: right hip OA Post-op diagnosis: same Procedure & Clinicians Procedure: right total hip arthroplasty anterior approach Same procedure as scheduled: Yes Indications: The patient has had progressively worsening right hip pain with radiographic c hanges consistent with arthritis. Non-operative management has failed and the patient has requested total hip replacement. The risks, benefits and alternatives to surgery were discussed with the patient prior to proceeding. Risks discussed included, but were not limited to, failure to relieve pain, leg length discrepancy, dislocation, stiffness, infection, nerve damage, deep venous thrombosis, pulmonary embolism, stroke, coma, heart attack, permanent paralysis and , as well as the potential need for eventual revision of the prosthetic. Surgeon: Oumou Antunez Director Of [employer]: Callum Sharif Anesthesia Type: General and Spinal Operative Notes Findings: Soft bone, adequate stability, Closure Type: primary Specimen(s): none sent Prosthetic devices, grafts, tissues, transplants, or devices: [employer] R3 size 52 cup, neutral poly liner,one 6.5 mm screw, size 2 polar stem standard offset with collar, 36 x +0 cobalt chrome head Estimated Blood Loss (mL): 250 Blood products transfused: none Procedure in detail: The patient was brought to the operating room. Patient was carefully positioned in the supine position. Time-out was performed and antibiotics were given. Anesthesia was induced. She was positioned in the on the table in order to allow hyperextension of the hip. The right lower extremity was prepped and draped in a standard sterile fashion. An anterior right hip incision was made 1 fingerbreadth lateral to the anterior superior iliac spine and extended distally towards the greater trochanter. Dissection was carried out through skin and subcutaneous tissues. Superficial hemostasis was achieved. The fascia over the tensor fascia shay was defined and incised with a knife. Two Allis clamps were used to grasp the fascia. Tensor fascia shay was retracted laterally. A gelpi retractor was placed. Dissection was carried out down along the neck. The circumflex vessels were carefully identified and cauterized with the Aqua Mantis. There was good visualization of the femoral neck. A Cobra was placed superior to the neck and the gluteus fibers were carefully stripped from that superior aspect of the capsule. A 2nd retractor was placed along the inferior aspect of the neck. The rectus insertion along the capsule was partially released. A 3rd retractor that was then gently placed over the rim of the acetabulum under the rectus. Capsule was carefully incised and released from the intertrochanteric line circumferentially superior to the mid sagittal line and inferiorly to the mid sagittal line until the lesser trochanter was palpable. A tag stitch was placed both in the superior and inferior limb of the capsular insertion. Along the acetabulum capsule was also released up to the mid sagittal 12:00 position. A portion of the labrum was resected. A saw was used to perform an osteotomy at the level of the intertrochanteric line and the junction of the superior femoral neck leaving approximately 1 finger breath of residual inferior neck above the lesser trochanter. A 2nd cut was made along the femoral neck at the base of the head and a napkin ring of neck was removed. Corkscrew was placed in the femoral head and the head was removed without difficulty. Retractors were then repositioned around the acetabulum. Residual labrum was resected and additional osteophytes were removed. A reamer that was 4 mm below the templated size was placed by hand in the acetabulum and it was reamed to centralize the acetabulum. It was then reamed up to 2 under the templated size and fluoroscopy was brought in to confirm the position of the reaming and depth of reaming. I reamed 1 under the anticipated size. A trial cup was placed and noted that it was appropriately sized and fluoroscopy confirmed position and depth. The component was open and inserted without difficulty fluoroscopic imaging was used to confirm that the cup had been adequately seated and was well positioned. It was further stabilized with a single screw. Neutral poly liner was placed. The cup was tested and noted to be stable. Attention was then directed to the femur. The femur was gently hyperextended additional capsular release was performed as needed in order to allow adequate visualization of the proximal femur with elevation of the femur. Patient was placed in a hyperextended slightly adducted position with maximum external rotation. Box osteotome was used to check for any residual neck as well as sclerotic bone along the trochanter. Fletcher pepper was placed in the femur. Additional broaching was performed. Canal finder was used to determine the alignment of the canal and position. Size 1 broach was placed. The canal was then appropriately broached up to the templated size as long as there was adequate stability of the broach and serial advancement of the broach without excessive impingement. Specific attention was directed at avoiding varus attempting to direct the distal aspect of the broach more anteriorly and avoiding excessive anteversion. It was countersunk some and calcar reaming was performed. Trial reduction showed acceptable range of motion, good stability, no posterior impingement, mormonism of leg length and appropriate lateral shuck. I also hyperflexed the hip and checked that there was no impingement anteriorly and there was good stability with flexion, adduction and internal rotation. Marcaine and Exparel were injected. The stem was placed without difficulty. Repeat trial reduction and x-ray showed acceptable overall position, length, and no evidence of the femoral fracture. Final head was placed. Wound was meticulously irrigated with normal saline. The hip was reduced and additional Exparel and Marcaine were injected. The capsule was closed with interrupted nonabsorbable sutures. The fascia of the tensor was closed with interrupted and running Vicryl. No drain was placed. Any tensor fascia shay muscle that appeared to be contused or injured which was a minimal amount was carefully resected. Capsule around the tensor was injected with Exparel and Marcaine. The skin was closed with barbed stitches for the subcutaneous tissue and skin. We also used surgical glue. The wound was dressed sterilely. Brief Betadine soak was also used and was meticulously irrigated wit h normal saline. Patient was transferred to recovery room in satisfactory condition. Complications: none Post-operative Condition: stable Disposition: Acute Care Plan for aftercare: The patient will be maintained on a standard total hip replacement protocol with weight bearing as tolerated and anterior hip precautions. The patient will receive Aspirin and sequential compression devices for DVT prophylaxis. The patient will be discharged home when safe for the home environment.
[2023-12-11] MEDS: CEFAZOLIN 2 GM/100 ML PREMIX 100 ML IV ×2 (08:15→17:31)
[2023-12-11] MEDS: TRANEXAMIC ACID 1,000 MG VIAL 1000 MG INJ ×2 (08:20→09:45)
--- NOTE | 2023-12-11 08:32 | SUR.OPER ---
Supine on padded Lena table with bilateral legs secured in padded positioning boots and suspended in positioning spars, operative leg in traction per surgeon. Head on one pillow. Arm on non-operative side secured on padded armboard <90 degrees abduction. Arm on operative side padded and resting across chest then secured with tape over sheet. Padded perineal post in place per surgeon.
[2023-12-11] MEDS: BUPIVACAINE LIPOSOME 266 MG/20 ML VIAL INJ (08:34)
[2023-12-11] MEDS: BUPIVACAINE 0.25% (PF) 60 ML, EPINEPHrine 0.3 MG INJ (08:35)
[2023-12-11] MEDS: OXYCODONE IR 5 MG TABLET PO ×3 (10:48→21:22)
--- NOTE | 2023-12-11 11:00 | DI.RAD.S_ITS ---
PROCEDURE: XR HIP W PEL IF DONE RT 2V INDICATIONS: POST OP ANTERIOR RIGHT HIP TECHNIQUE: AP pelvis and lateral view of the hip acquired. COMPARISON: [facility], CR, XR HIP W PEL IF DONE RT 2V, 12/11/2023, 8:04. [facility] ([facility] CR, XR HIP W PEL IF DONE YANELIS 3TO4V, 06/01/2023, 11:22. FINDINGS: Bones: Patient is status post right hip arthroplasty, with hardware components in expected positions. The hip joint appears congruent. The visualized bony structures appear intact. Soft tissues: Overlying postoperative changes are noted. No suspicious soft tissue densities. IMPRESSION: Expected post-operative appearance of a hip arthroplasty. Dictated by: Cameron Danielson M.D. on 12/11/2023 at 15:09 Approved by: Cameron Danielson M.D. on 12/11/2023 at 15:09
[2023-12-11] MEDS: LACTATED RINGERS 1,000 ML 100 ML IV (11:32)
[2023-12-11] MEDS: ACETAMINOPHEN 325 MG TABLET 650 MG PO ×2 (13:27→20:26)
--- NOTE | 2023-12-11 16:26 | PT.IIE ---
Current Diagnoses Unilateral primary osteoarthritis, right hip (12/11/23) Surgery Performed Operation Date: 12/11/23 07:45 Actual Procedures p Total Hip Arthroplasty/Anterior Approach(Right) - Oumou Antunez MD Surgical History (Last Updated 11/28/23 @ 09:17 by Brunilda Kaur RN) Anesthesia H/O cardiac radiofrequency ablation (2018) History of cataract removal with insertion of prosthetic lens (~2011) Status post hysterectomy (~1984) Medical History (Last Updated 11/28/23 @ 09:30 by Brunilda Kaur RN) Anxiety Atrial fibrillation Atrial flutter Chicken pox Chronic back pain Hearing loss (~2021) History of COVID-19 (07/2023) History of urinary incontinence Measles Osteoarthritis Pelvis fracture (~2004) Pneumonia (~1998) Rosacea Rubella Sleep apnea Physical Therapy Inpatient Evaluation/Re-Eval M1 PT/OT-IP Prior Functional Status Start: 12/11/23 16:26 Freq: NEEDED Status: Active Protocol: Document 12/11/23 16:26 DLM (Rec: 12/11/23 16:43 DL [id number]) Medical Review Prior Functional Status Medical History Reviewed Yes Diet/Fluid Consistency Regular Communication WFL, mild hard of hearing Mobility and Gait Independent, hip pain effecting her standing and walking before surgery, she likes to swim and walk for exercise Activities of Daily Living and IADL's Independent, drives, active Prior Functional Level (Other details) she has friends who will stay with her to help after discharge Social History Household Members none Living Arrangements House Number of Floors (Floors) Two Floors Number of Stairs To Enter/Railing? ramp Home Equipment Front Wheel Walker,Straight Cane,Water Truck Driver,Sock Aid,Lift Recliner Employment Status Retired Additional Social History Comment Retired teacher/counselor. She plans to stay on the first floor of her home at discharge. Her bedroom is on the second floor. She reports having out-pt PT scheduled after discharge. M2 PT-IP Current Condition Start: 12/11/23 16:26 Freq: NEEDED Status: Active Protocol: Document 12/11/23 16:26 DLM (Rec: 12/11/23 16:43 DL [id number]) Physical Therapy Current Condition Current Condition Evaluation Date 12/11/23 Treatment Diagnosis right anterior total hip arthroplasty, impaired gait Onset Date 12/11/23 M3 PT-IP Subjective Start: 12/11/23 16:26 Freq: NEEDED Status: Active Protocol: Document 12/11/23 16:26 DLM (Rec: 12/11/23 16:43 DL [id number]) Subjective Physical Therapy Visit Type Type Initial Evaluation Visit Start Time 15:30 Visit Stop Time 16:26 Number of TEST ENGINEER NUCLEAR EQUIPMENT Visits 0 Physical Therapy Visit Comments Patient Comments She reports her hip pain got better as she walked this visit. Patient Goals Discharge home tomorrow with friends to help Therapy Pain Assessment Pain When Pain Assessed During Mobility Pain Present Pain Present Pain Reported Location right hip Intensity 3 Scale Used Numeric (0 - 10) Description Aching,Tender,With Movement Pain Behaviors Guarding Pain Management Techniques Apply Cold,Re-positioning M4 PT-IP Mobility and Gait Start: 12/11/23 16:26 Freq: NEEDED Status: Active Protocol: Document 12/11/23 16:26 DLM (Rec: 12/11/23 16:43 [facility] [id number]) PT-Bed Mobility Assessment Supine to Sit Supine to Sit Minimal Assistance Sit to Supine Sit to Supine Minimal Assistance Scooting Scooting to Edge of Bed Independent PT-Transfer Assessment Sit to and From Stand Sit to and from Stand Standby Assistance,Use of Upper Extremities Equipment Transfer Assistive Device Gait Belt,Front Wheeled Walker Transfers Transfer Destination Bed Transfer Technique Stand Step Pivot Transfer Ability Level of Assist Standby Assistance,Use of Upper Extremities Comments Mobility Comments She needs min assist to get right LE in and out of bed this visit. Gait Assessment Gait Gait Assistance Required: Standby Assistance Distance (Feet) 60 Able to Maintain Weight Bearing Status Yes During Gait Assistive Devices Assistive Device Gait Belt,Front Wheeled Walker Gait Deviations General Gait Pattern Antalgic Factors Limiting Gait Function Factors Limiting Gait Function Decreased Activity Tolerance, Decreased Strength,Limited Range of Motion,Pain,Poor Balance Comments Gait Comments She demonstrates safe use of FWW, she describes right hip pain with swing phase and stance phases of gait. She reports her pain improved with distance of gait this visit. PT-Balance Assessment Sitting Balance and Reactions Static Sitting Balance Ability Normal Dynamic Sitting Balance Ability Normal Standing Balance and Reactions Static Standing Balance Ability Good Dynamic Standing Balance Ability Good Device Used FWW M5 PT-IP Objective Assessments Start: 12/11/23 16:26 Freq: NEEDED Status: Active Protocol: Document 12/11/23 16:26 DLM (Rec: 12/11/23 16:43 [facility] [id number]) Orientation Orientation/Cognition Level of Alertness Alert Orientation Name,Age,Birthday,Month,Date, Year,Day of Week,Place, Situation Language Function Ability No Deficits Noted Safety Awareness Understands Safety Issues Memory Description No Deficits Noted Gross Range of Motion Upper Extremity ROM Assessment Within Functional Limits Lower Extremity ROM Assessment Right Impaired Impairments limited by anterior hip precautions post-op Strength Upper Extremity Strength Assessment Within Functional Limits Lower Extremity Strength Assessment Right Impaired Hip hip flex 3-/5 with pain Knee knee ext 4/5 Ankle DF 5/5 Coordination Assessment Gross Coordination Gross Coordination WNL Sensation Assessment Sensation Gross Sensation WNL Comments Sensation Comments she describes mild numbness near incisional area at this time Muscle Tone Muscle Tone WNL Yes M6 PT-IP Treatment Start: 12/11/23 16:26 Freq: NEEDED Status: Active Protocol: Document 12/11/23 16:26 DL (Rec: 12/11/23 16:43 [facility] [id number]) Physical Therapy Treatment Exercises Exercises Ankle Pumps,Gluteal Sets,Quad Sets,Heel Slides Education Education Provided Precautions,Weight Bearing Status,Post-Op Packet,Safety Other Treatments Other Treatment Performed her friend and caregiver at discharge was present today and participated in education and training, written post-op packet provided for home use, answered questions M7 PT-IP Assessment and Plan Start: 12/11/23 16:26 Freq: NEEDED Status: Active Protocol: Document 12/11/23 16:26 DL (Rec: 12/11/23 16:43 [facility] [id number]) PT Summary Assessment and Plan Potential Rehabilitation Potential Excellent Status of Condition at Evaluation Evolving Summary Impairments Pain,ROM,Strength,Balance,Bed Mobility,Transfers,Gait, Activity Tolerance Progress Towards Goals Progressing Toward Goals Assessment Summary Dalia is alert and resting in bed. Educated pt in post-op precautions for right anterior TAB. She was able to ambulate around the room this visit with the FWW and stand by assistance. She needs minimal assistance to get right LE in/out of bed. Her friend and caregiver after surgery is present today and appears prepared to help after discharge. Pt plans to stay on first floor of her home at discharge and progress to doing the stairs as her pain improves. Pt is progressing well in therapy. Will follow up for one more visit tomorrow before discharge home for post-op education and progress her distance of gait. Goals Bed Mobility Goal Independent Transfer Goal Independent,Front Wheeled Walker Gait Goal Independent,Front Wheel Walker Gait Distance 150 feet Other Goals up/down one step with FWW and SBA Days to Meet Goals 2 Frequency of Treatment Frequency Of Treatment Twice a Day Treatment Plan Physical Therapy Treatment Plan Bed Mobility Training,Transfer Training,Gait Training, Therapeutic Exercise,Balance Retraining,Post Op Education, Discharge Planning,Hot or Cold Pack,Neuromuscular Re-ed Precautions Anterior Hip Precautions No Hip Extension,No Hip External Rotation Weight Bearing Status Weight Bearing Status Weight Bear as Tolerated Allowed Weight Bearing Amount (enter % right LE or #) (%) Recommendations To Nursing Amount of Assist Needed Standby Assistance Discharge Recommendations PT Discharge Recommendations Home with Assistance Other Discharge Recommendations friend will be staying with her to help Goal is to leave on 11:20 AM del Sunday Transportation Needs at Discharge Private Vehicle
[2023-12-11] MEDS: METOPROLOL ER 50 MG TABLET PO (17:37)
[2023-12-11] MEDS: DOCUSATE 100 MG CAPSULE PO (20:25)
[2023-12-12] MEDS: CEFAZOLIN 2 GM/100 ML PREMIX 100 ML IV (00:30)
[2023-12-12 05:42] LABS: Hematocrit 30.5 % (36-46); Hemoglobin 10.3 g/dL (12.0-16.0)
[2023-12-12] MEDS: LEVOTHYROXINE 50 MCG TABLET PO (06:02)
[2023-12-12] MEDS: OXYCODONE IR 5 MG TABLET PO ×2 (06:03→08:55)
--- NOTE | 2023-12-12 06:35 | P.DS_ITS ---
History of Present Illness History of Present Illness Date Patient Seen: 12/12/23 Time Patient Seen: 06:35 Chief complaint: right TAB anterior Narrative: Operative Date/Time/Diagnoses Date of procedure: 12/11/23 Time of procedure: 08:10 Pre-op diagnosis: right hip OA Post-op diagnosis: same Procedure & Clinicians Procedure: right total hip arthroplasty anterior approach Same procedure as scheduled: Yes Indications: The patient has had progressively worsening right hip pain with radiographic changes consistent with arthritis. Non-operative management has failed and the patient has requested total hip replacement. The risks, benefits and alternatives to surgery were discussed with the patient prior to proceeding. Risks discussed included, but were not limited to, failure to relieve pain, leg length discrepancy, dislocation, stiffness, infection, nerve damage, deep venous thrombosis, pulmonary embolism, stroke, coma, heart attack, permanent paralysis and , as well as the potential need for eventual revision of the prosthetic. Surgeon: Oumou Antunez Lay Out And Detail Drafter: Callum Sharif Anesthesia Type: General and Spinal Operative Notes Findings: Soft bone, adequate stability, Closure Type: primary Specimen(s): none sent Prosthetic devices, grafts, tissues, transplants, or devices: Antunez and Nephew R3 size 52 cup, neutral poly liner,one 6.5 mm screw, size 2 polar stem standard offset with collar, 36 x +0 cobalt chrome head Estimated Blood Loss (mL): 250 Blood products transfused: none Discharge Providers Provider Discharge Date: 12/12/23 Primary care physician: Praveen Amato MD Consults: 11/29/23 08:26 Consult to Anesthesiology Routine Comment: Consulting Provider: Anesthesiologist Reason for consultation: Surgeon requested re: Cardiac history 12/11/23 06:00 Consult to Anesthesiology Routine Comment: Consulting Provider: Anesthesiologist Reason for consultation: Regional block for post operative pain control Has provider been notified: No 12/11/23 10:56 Consult to Discharge Planning Routine Comment: Consult to Occupational Therapy Evaluate & Treat Comment: Physician Instructions: Evaluate and treat Consult to Physical Therapy Evaluate & Treat Comment: Physician Instructions: post op TAB protocol Discharge provider: Eduarda Slater PA-C Summary Hospital Course Discharge Diagnosis: Right hip osteoarthritis, s/p right total hip arthroplasty Hospital Course: Ms Beckford's hospital course was unremarkable. On the morning of POD# 1, she was feeling well and wanted to go home. She was eating and voiding without difficulty, and her pain was well-controlled on PO medication. She was evaluated by PT during her stay and they thought she was appropriate for discharge home. Exam Vital Signs (past 8 hours): - 12/11/23 22:49 Temperature 96.4 F L Pulse Rate 63 Respiratory Rate 18 Blood Pressure 115/50 L Pulse Oximetry 99 Oxygen Delivery Method CPAP Oxygen Flow Rate 0 Narrative Exam Narrative: 5/5 strength in hip flexors, quadriceps, hamstrings, DF, PF, EHL on right. Sensation to light touch intact in RLE, calf soft and compressible. Objective Labs 12/12/23 04:58 Labs: Laboratory Results - last 24 hr 12/12/23 04:58 Hgb 10.3 L Hct 30.5 L PFSH Medical History (Updated 11/28/23 @ 09:30 by Brunilda Kaur RN) History of COVID-19 (07/2023) Anxiety Osteoarthritis Atrial flutter Sleep apnea Pelvis fracture (~2004) Chronic back pain Pneumonia (~1998) Rubella Measles Chicken pox Hearing loss (~2021) History of urinary incontinence Rosacea Atrial fibrillation Surgical History (Updated 11/28/23 @ 09:17 by Brunilda Kaur RN) H/O cardiac radiofrequency ablation (2018) Anesthesia History of cataract removal with insertion of prosthetic lens (~2011) Status post hysterectomy (~1984) Family History (Updated 10/18/22 @ 21:18 by Yuni Martinez) Father Diabetes mellitus Heart disease Mother Rheumatoid arthritis Social History (Updated 12/26/18 @ 16:00 by Inez Chance DO) household members: none Smoking Status: Former smoker alcohol intake: former substance use type: does not use Discharge Assessment & Plan Assessment and Plan Assessment: Right hip osteoarthritis, s/p right total hip arthroplasty Plan of Treatment: Discharge home, Xarelto as per home for VTE prophylaxis to restart 12/12, outpt PT, f/u in office in 2 weeks as scheduled. Pt has pain meds at home. Discharge Plan Discharge Plan Patient Disposition: Home Provider Discharge Comment: Restart Xarelto on , 12/13/2023. Hold lisinopril for SBP (top number) less than 130. Discharge orders & Medications Discharge Orders: Discharge (Order); Ordered 12/12/23 Ordered By: Eduarda Slater Prescriptions: Continued levothyroxine 50 mcg tablet 50 mcg PO DAILY Qty: 90 1RF clindamycin phosphate [Cleocin T] 1 % solution 1 applic topical BID Qty: 60 0RF Rx Instructions: Apply to face topically twice daily for Rosacea metoprolol succinate 50 mg tablet extended release 24 hr 50 mg PO QPM Xarelto 20 mg tablet 20 mg PO DAILY Rx Instructions: must administer with evening meal dofetilide [Tikosyn] 250 mcg capsule 250 mcg PO Q12H lisinopril 5 mg tablet 5 mg PO DAILY metoprolol tartrate 25 mg tablet 25 mg PO DAILY PRN (Reason: Atrial Fibrillation) Follow up/Referrals: Oumou Antunez MD [Physician] - 12/25/23 1:00 pm (Follow up w/ Eduarda Slater PA-C, at [facility] in [place].) Praveen Amato MD [Primary Care Provider] - Diet/Activity/Treatments Diet: Diet as Tolerated Activity: Weightbearing as tolerated to right leg. Anterior hip precautions. Cold/Heat Therapy: Ice to hip as needed for pain. Skin/Wound/Dressing Care Report to your healthcare provider any signs of infection, such as:: chills, fever, night sweats, unusual drainage and unusual redness Dressing: May shower. Leave dressing in place until follow up in office. No bathing or otherwise soaking incision. Call the office if the dressing becomes saturated inside. Visit Report/Discharge Packet Instructions: DI for Hip Replacement, DI for Prescription Opioid Use Stand Alone Forms: Patient Portal/API, Surgery Discharge Discharge Data Primary Care Provider: Praveen Amato Attending Provider: Oumou Antunez Quality VTE Deep Vein Thrombosis/Pulmonary Embolism Present on Admission: No
[2023-12-12 07:07] VITALS: BP 110/48; PULSE 61; RESP 18; TEMP 36; O2SAT 98
[2023-12-12] MEDS: DOCUSATE 100 MG CAPSULE PO (08:54)
[2023-12-12] MEDS: ACETAMINOPHEN 325 MG TABLET 650 MG PO (08:55)
--- NOTE | 2023-12-12 09:04 | CM.DANOTE ---
DCP Assessment Brief Pt is an 83yo F here following right hip surg with Dr. Antunez on 12/11/23. Pt is POD 1, lives alone on [facility] but has friends to stay with her throughout her recovery. PCP Praveen Amato Payer Medicare and [facility]. ADVERTISEMENT COMPOSITOR reviewed EMR. Per ortho team, dc home today. Per PT, home with assistance. Friend is staying with her. ADVERTISEMENT COMPOSITOR met with pt in room, working with PT. Pt requested a ferry pass. ADVERTISEMENT COMPOSITOR completed priority boarding pass, printed it out, and placed it with pt's belongings after showing it to pt. Pt confirms she has valid ID with her. Pt denies other CM needs. ADVERTISEMENT COMPOSITOR only met with pt briefly due to working with PT/her eagerness to quickly dc from this hospital. Plan: dc today with friends to drive/ferry. No CM needs identified. CM team will continue to follow as needed. ESTRELLITA Lala Discharge Planning/Care Management CM Discharge Assessment Start: 12/12/23 08:59 Freq: Status: Active Protocol: Document 12/12/23 08:59 (Rec: 12/12/23 09:03 [id number]) Discharge Planning Assessment Assigned Clinical Team Lead ESTRELLITA Kebede Advance Directives? Yes Advance Directives on File No History Provided By Patient Prior Living Arrangements House Household Members none Independent with ADL's Yes Is patient alert and oriented? Yes DME Already Rented / Owned FWW / Walker,Cane Barriers to Discharge No Discharge Plan Home Transportation Arrangement friend in [place] and 11:20am ferry Referrals Initiated None needed Whiteboard Updated in Patient Room with No name and ext. # of Clinical Team Lead Review Status In Process Next Review Type Continued Stay Review Pre-Anesthesia Assessment Start: 11/28/23 08:53 Freq: Status: Active Protocol: Document 11/28/23 08:53 CAB (Rec: 11/28/23 09:35 CAB [id number]) Pre-Anesthesia Assessment Patient Information Reviewed Via Phone Assessment Assessment Completed With Patient Diagnostic Results BMP/CMP,CBC Comment Labs @ [facility] 11/14/22 & 09/22/23, EKG pending Primary Care Provider Praveen Amato Seen Specialist in Last 12 Months Yes Specialist Seen Structural Steel Painter,Certified Hyperbaric Technologist, Opthamologist/Strategic Account Manager, Orthopedist,Laboratory Asst Primary Language Occitan Ip Litigation Associate Required No Height 170.18 cm Weight 65.771 kg Body Mass Index (BMI) 22.7 Hearing Ability Hearing Impaired,Use of Hearing Aid Visual Assist Magnifying Glass Dentition Type Teeth, Natural Present Barriers to Learning None Other Aids Yes: CPAP Hx Anesthesia Reactions No Hx Family Anesthesia Reaction No Hx Malignant Hyperthermia No Hx Blood Transfusions No Anesthesia Review Requested Yes: Surgeon requested re: Cardiac history Mr Teacher No alcohol intake former Smoking Status Former smoker Tobacco type cigarettes how long ago did patient quit smoking 1963 Substance Use Type does not use Pain Present Pain Reported Musculoskeletal Symptoms Abnormal Gait,Difficulty Walking,Joint Pain History of Falling (Recent or History of No ) Patient is completely paralyzed or No completely immobile Mental Status Oriented to own ability Comment Walking sticks for outside ambulation Is patient on oxygen? No Does patient have JONES/SOB Yes: Slight going uphill Hx Sleep Apnea Yes CPAP/BIPAP use prescribed and used routinely Will Bring CPAP/BIPAP DOS Yes Currently Taking a Beta José Miguel Yes: Metoprolol Can You Climb a Flight of Stairs Without No SOB Hx Chest Pain No Hx SOB Yes: Slight going uphill Hx Syncope or Dizziness No Anti-Coagulant Therapy Yes: Xarelto-will hold 48 hours per Cardiology Has a Structural Steel Painter Yes: Visit 09/13/[address] Castillo @ [facility] visit Cardiac Testing No Hx Pacemaker/ICD No Pacemaker Rep Required? No Comment Cardiac records scanned and in surgery folder Diet Type At Home Regular Dysphagia No Gastrointestinal Symptoms None Bladder Pattern Urgency Urinary Catheter Present No Hx Urinary Self Catheterization No Diabetes No HgbA1C 5.4 Date 09/22/23 Patient No Lactating No Hx Drug Resistant Organism No Presence of External or Internal Medical Yes: Bilateral hearing aids, Devices CPAP, bilateral eye IOLs Received a COVID vaccine? Yes Received all doses? Yes Marital Status / Lives With none Current Living Arrangements House Number of Floors (Floors) Two Floors Support System Friend(s) Does the Patient Have Assistance After Yes: Friend will stay w/ Surgery patient to assist w/[facility] Patient Discharge Plan Description Return Home Comment Pt advised overnight length of stay per surgeon Additional comment Pt lives on [facility] Feels Safe in Current Environment Yes Been Physically Hurt or Threatened By a No Person in Current Environment Do you have thoughts of harming yourself None or others? Are you currently considering suicide? No Do you have a plan to hurt yourself or No Plan others? Do You Have Any Spiritual Beliefs That No May Affect Your HC Choices? Do You Have Any Cultural Practices That No May Affect Your HC Choices? Comment Yazidi Who Can We Speak to About Patient's Care Family, friends Identifying Code for Release of Patient Declines to issue Information Health Care Proxy/Next of Kin SARATH Johnston (friend) Health Care Proxy Emergency Contact Name Frances Hair (friend) Emergency Contact Advance Directives? Yes Advance Directives on File No Requested Patient Bring Advanced Yes Directives DOS Power of Mainspring Torque Tester Yes Power of [employer]spring Torque Tester Name SARATH Johnston (friend) Power of Mainspring Torque Tester PAC Instructions Bring CPAP/BIPAP,Do not shave/ clip surgical site,Durable medical equipment,Medications to take/avoid,Nasal antibiotic ,No ETOH/petroleum product on skin DOS,NPO,Post-op transportation,Pre-surgical wash,Sensory aids,Sturdy shoes /comfortable clothes,Do not bring valuables and remove jewelry
--- NOTE | 2023-12-12 09:20 | PT.IPTN ---
Current Diagnoses Unilateral primary osteoarthritis, right hip (12/11/23) Surgery Performed Operation Date: 12/11/23 07:45 Actual Procedures p Total Hip Arthroplasty/Anterior Approach(Right) - Oumou Antunez MD Physical Therapy Treatment Note M2 PT-IP Current Condition Start: 12/11/23 16:26 Freq: NEEDED Status: Discharge Protocol: Document 12/11/23 16:26 DLM (Rec: 12/11/23 16:43 DLM [id number]) Physical Therapy Current Condition Current Condition Evaluation Date 12/11/23 Treatment Diagnosis right anterior total hip arthroplasty, impaired gait Onset Date 12/11/23 M3 PT-IP Subjective Start: 12/11/23 16:26 Freq: NEEDED Status: Discharge Protocol: Document 12/12/23 09:20 DLM (Rec: 12/12/23 10:38 DLM [id number]) Subjective Physical Therapy Visit Type Type Treatment Note Visit Start Time 08:45 Visit Stop Time 09:20 Number of FAREBOX REPAIRER Visits 0 Physical Therapy Visit Comments Patient Comments She feels tired today. She feels safe to go home today. She is going to talk to her friend about borrowing a wheelchair for longer distances at home. Patient Goals Discharge home with friends to help Therapy Pain Assessment Pain When Pain Assessed During Mobility Pain Present Pain Present Pain Reported Location right hip Intensity 5 Scale Used Numeric (0 - 10) Description Aching,Tender,With Movement Pain Behaviors Guarding Pain Management Techniques Apply Cold,Re-positioning, Timing of Activity with Medications M4 PT-IP Mobility and Gait Start: 12/11/23 16:26 Freq: NEEDED Status: Discharge Protocol: Document 12/12/23 09:20 DLM (Rec: 12/12/23 10:38 DLM [id number]) PT-Bed Mobility Assessment Supine to Sit Supine to Sit Independent Sit to Supine Sit to Supine Independent Scooting Scooting to Edge of Bed Independent Scooting Up and Down in Bed Independent PT-Transfer Assessment Sit to and From Stand Sit to and from Stand Independent,Use of Upper Extremities Equipment Transfer Assistive Device Gait Belt,Front Wheeled Walker Transfers Transfer Destination Bed,Chair,Toilet Transfer Technique Stand Step Pivot Transfer Ability Level of Assist Independent,Use of Upper Extremities Comments Mobility Comments She uses UE assist to get right LE in/out of bed. She moves slowly with bed mobility but it is safe and functional . Gait Assessment Gait Gait Assistance Required: Standby Assistance Distance (Feet) 100 Able to Maintain Weight Bearing Status Yes During Gait Assistive Devices Assistive Device Gait Belt,Front Wheeled Walker Gait Deviations General Gait Pattern Antalgic,Decreased Stride Length Factors Limiting Gait Function Factors Limiting Gait Function Decreased Activity Tolerance, Decreased Strength,Limited Range of Motion,Pain,Poor Balance Comments Gait Comments She demonstrates safe use of FWW during gait. She describes feeling fatigued during gait today. Stair Climbing Assessment Evaluation Level of Assist On Stairs Contact Guard Assistance, Minimal Assistance Devices Stair Climbing Assistive Devices Right Railing Technique/Endurance Stair Climbing Direction Ascend and Descend Stair Climbing Technique Step to Step Number of Steps Climbed 1 Stair Climbing Set # Repetitions (reps) 1 Comments Stair Climbing Comments Stair training for sequencing s/p surgery. Pt demonstrates good functional ability to get up a step. She plans to stay on main level of house until she feels ready to do the flight up to her bedroom. PT-Balance Assessment Sitting Balance and Reactions Static Sitting Balance Ability Normal Dynamic Sitting Balance Ability Normal Standing Balance and Reactions Static Standing Balance Ability Good Dynamic Standing Balance Ability Good Device Used FWW M5 PT-IP Objective Assessments Start: 12/11/23 16:26 Freq: NEEDED Status: Discharge Protocol: Document 12/12/23 09:20 DLM (Rec: 12/12/23 10:38 [facility] [id number]) Orientation Orientation/Cognition Level of Alertness Alert Orientation Name,Age,Birthday,Month,Date, Year,Day of Week,Place, Situation Language Function Ability No Deficits Noted Safety Awareness Understands Safety Issues Memory Description No Deficits Noted M6 PT-IP Treatment Start: 12/11/23 16:26 Freq: NEEDED Status: Discharge Protocol: Document 12/12/23 09:20 DLM (Rec: 12/12/23 10:38 [facility] [id number]) Physical Therapy Treatment Exercises Exercises Ankle Pumps,Gluteal Sets,Quad Sets,Heel Slides Education Education Provided Precautions,Weight Bearing Status,Post-Op Packet,Safety Other Treatments Other Treatment Performed reviewed HEP and hip precautions, answered her questions, her friends were not present this visit M7 PT-IP Assessment and Plan Start: 12/11/23 16:26 Freq: NEEDED Status: Discharge Protocol: Document 12/12/23 09:20 DLM (Rec: 12/12/23 10:38 DLMiguel [id number]) PT Summary Assessment and Plan Summary Impairments Pain,ROM,Strength,Balance,Bed Mobility,Transfers,Gait, Activity Tolerance Progress Towards Goals Progressing Toward Goals,Safe For Discharge Assessment Summary Dalia is progressing well in therapy. She demonstrates safe use of her FWW for gait. She describes fatigue today during gait that limits her distances. She shows good awareness of her anterior hip precautions. She appears safe to discharge home with her friends to assist as needed. Pt is cleared by physical therapy for discharge home when she is medically stable. Spoke with her OT, case management and nursing for continuity of care. Goals Bed Mobility Goal Independent Transfer Goal Independent,Front Wheeled Walker Gait Goal Independent,Front Wheel Walker Gait Distance 150 feet Other Goals up/down one step with FWW and SBA Days to Meet Goals 2 Frequency of Treatment Frequency Of Treatment Twice a Day Treatment Plan Physical Therapy Treatment Plan Bed Mobility Training,Transfer Training,Gait Training, Therapeutic Exercise,Balance Retraining,Post Op Education, Discharge Planning,Hot or Cold Pack,Neuromuscular Re-ed Precautions Anterior Hip Precautions No Hip Extension,No Hip External Rotation Weight Bearing Status Weight Bearing Status Weight Bear as Tolerated Allowed Weight Bearing Amount (enter % right LE or #) (%) Recommendations To Nursing Amount of Assist Needed Standby Assistance Discharge Recommendations PT Discharge Recommendations Home with Assistance Other Discharge Recommendations Friend staying with her at discharge Transportation Needs at Discharge Private Vehicle
[2023-12-12 09:22] VITALS: BP 111/47; PULSE 64; RESP 16; O2SAT 100
--- NOTE | 2023-12-12 10:04 | OT.IP.EVAL ---
Current Diagnoses Unilateral primary osteoarthritis, right hip (12/11/23) Surgery Performed Operation Date: 12/11/23 07:45 Actual Procedures p Total Hip Arthroplasty/Anterior Approach(Right) - Oumou Antunez MD Past Medical History (Last Updated 11/28/23 @ 09:30 by Brunilda Kaur, RN) Anxiety Atrial fibrillation Atrial flutter Chicken pox Chronic back pain Hearing loss (~2021) History of COVID-19 (07/2023) History of urinary incontinence Measles Osteoarthritis Pelvis fracture (~2004) Pneumonia (~1998) Rosacea Rubella Sleep apnea Surgical History (Last Updated 11/28/23 @ 09:17 by Brunilda Kaur, SUMEET) Anesthesia H/O cardiac radiofrequency ablation (2018) History of cataract removal with insertion of prosthetic lens (~2011) Status post hysterectomy (~1984) Occupational Therapy Inpatient Evaluation/Re-Eval M1 PT/OT-IP Prior Functional Status Start: 12/11/23 16:26 Freq: NEEDED Status: Active Protocol: Document 12/12/23 17:02 CGR (Rec: 12/12/23 17:14 CGR [id number]) Medical Review Prior Functional Status Medical History Reviewed Yes Diet/Fluid Consistency Regular Communication WFL, mild hard of hearing Mobility and Gait Independent, hip pain effecting her standing and walking before surgery, she likes to swim and walk for exercise Activities of Daily Living and IADL's Independent, drives, active Prior Functional Level (Other details) she has friends who will stay with her to help after discharge Social History Household Members none Living Arrangements House Number of Floors (Floors) Two Floors Number of Stairs To Enter/Railing? ramp Home Equipment Front Wheel Walker,Straight Cane,Sheeter Operator,Sock Aid,Lift Recliner Employment Status Retired Additional Social History Comment Retired teacher/counselor. She plans to stay on the first floor of her home at discharge. Her bedroom is on the second floor. She reports having out-pt PT scheduled after discharge. M2 OT-IP Current Condition Start: 12/12/23 17:01 Freq: Status: Active Protocol: Document 12/12/23 17:02 CGR (Rec: 12/12/23 17:14 CGR [id number]) Occupational Therapy Current Condition Current Condition Evaluation Date 12/12/23 Treatment Diagnosis R TAB anterior, WBAT Diagnosis Onset Date 3/12/24 Post Operative Precautions Anterior Hip Precautions No Hip Extension,No Hip External Rotation Weight Bearing Status Weight Bearing Status Weight Bear as Tolerated M3 OT- IP Subjective and Pain Start: 12/12/23 17:01 Freq: Status: Active Protocol: Document 12/12/23 17:02 CGR (Rec: 12/12/23 17:14 CGR [id number]) OT- Subjective Occupational Therapy Visit Type Type Initial Evaluation Visit Start Time 09:30 Visit Stop Time 10:04 Notes Pt is [place]. OT Pain Assessment Pain When Pain Assessed At Rest Pain Present Pain Present Pain Reported Location right hip Intensity 3 Scale Used Numeric (0 - 10) Management Techniques Modification of Treatment,Re- positioning,Timing of Activity with Medications M4 OT- IP ADL's Start: 12/12/23 17:01 Freq: Status: Active Protocol: Document 12/12/23 17:02 CGR (Rec: 12/12/23 17:14 CGR [id number]) OT [id number] Comments OT Self-Feeding Comments not meal time OT ADL-Grooming General Evaluation Grooming Ability Independent Areas Needing Assistance Face Washing Comments OT Grooming Comments standing at sink OT ADL-Oral Care General Eval Oral Care Ability Independent Areas of Assistance Brushing Teeth,Retrieving/Set- Up of Items Comments Oral Care Comments standing at sink OT ADL-Dressing General Eval Upper Body Dressing Ability Independent Lower Body Dressing Ability Minimal Assistance Areas Needing Assistance Retrieving/Set-up of Clothing, Pull-Over Shirt,Underpants/ Brief,Pants/Shorts Assistive Devices Dressing Assistive Devices Sheeter Operator Comments OT Dressing Comments Pt dressed in clothing in prep for discharge. Pt was educated on use or optical scientist for LB dressing and performed with min a. Pt states she will have help for dressing for a while from friends. OT ADL-Toileting Comments OT Toileting Comments pt declined need OT ADL-Bathing Comments OT Bathing Comments not performed M5 OT- IP IADL's Start: 12/12/23 17:01 Freq: Status: Active Protocol: Document 12/12/23 17:02 CGR (Rec: 12/12/23 17:14 CGR [id number]) OT-Instrumental Activities of Daily Living Deficits IADL Deficits Identified No Deficits Home Safety Awareness Awareness of Need for Assistance at Home Good Awareness Ability to Problem Solve Emergency Able to Problem Solve Situations Medication Management Medication Management No Deficits Identified Money Management Money Management No Deficits Identified Meal Preparation Meal Preparation Caregiver Provides Assist Automatic Splicing Machine Operator Automatic Splicing Machine Operator Caregiver Provides Assist Driving Driving Comments Pt states understanding that she can't drive till she is off pain medications and her leg is moving as normal M6 OT- IP Functional Cognition Start: 12/12/23 17:01 Freq: Status: Active Protocol: Document 12/12/23 17:02 CGR (Rec: 12/12/23 17:14 CGR [id number]) Cognitive Factors Limiting Selfcare Function Cognitive Ability Level of Alertness Alert Patient Orientation Name,Age,Birthday,Month,Date, Year,Day of Week,Place, Situation Attention Span Ability Capable of Focused Attention, Capable of Sustained Attention Ability to Follow Commands Able to Follow One Step Commands with Increased Time, Able to Follow One Step Commands with Repetition OT- Vision and Hearing OT- Hearing Assessment OT- Hearing Assessment WFL OT- Vision Assessment Vision History Cataracts Visual Acuity Glasses For Reading Visual Attentiveness WFL Occular Pursuits WFL Visual Convergence WFL Vision Assessment Comments Pt has a hx of cateract sx M7 OT- IP Mobility and Balance Start: 12/12/23 17:01 Freq: Status: Active Protocol: Document 12/12/23 17:02 CGR (Rec: 12/12/23 17:14 CGR [id number]) OT- Bed Mobility Assessment Supine to Sit Supine to Sit Assist Standby Assistance Scooting Scooting to Edge of Bed Standby Assistance OT-Transfer Assessment Sit to and From Stand Sit to and from Stand Standby Assistance Transfers Transfer Ability Standby Assistance Technique Transfer Destination Bed,Chair Transfer Technique Stand Step Pivot Devices Transfer Assistive Devices Gait Belt,Front Wheeled Walker Comments Mobility Comments mobility from bed to sink then to chair for dressing. OT- Gait Assessment Gait Gait Assistance Required: Standby Assistance Assistive Devices Assistive Device Gait Belt,Front Wheeled Walker OT- Balance Assessment Sitting Balance and Reactions Static Sitting Balance Ability Good Dynamic Sitting Balance Ability Good M8 OT- IP Objective Assessments Start: 12/12/23 17:01 Freq: Status: Active Protocol: Document 12/12/23 17:02 CGR (Rec: 12/12/23 17:14 CGR [id number]) OT Gross Range of Motion Upper Extremity Range of Motion Assessment Within Functional Limits OT Strength Upper Extremity Strength Assessment Within Functional Limits Comments Strength Comments grossly 4+/5 OT- Coordination Assessment Upper Extremity Finger to Nose Test Within Functional Limits Finger Tapping Test Within Functional Limits OT-Muscle Tone Assessment Muscle Tone WNL Yes OT Sensation Assessment Edema Edema Absent M9 OT- IP Assessment and Plan Start: 12/12/23 17:01 Freq: Status: Active Protocol: Document 12/12/23 17:02 CGR (Rec: 12/12/23 17:14 CGR [id number]) OT Summary Assessment and Plan Potential Rehabilitation Potential Excellent Analytic Complexity at Evaluation Low Summary OT Impairments Pain,Functional Mobility, Dressing,Toileting,Bathing, Toilet Transfers,Shower Transfers,Activity Tolerance Progress Towards Goals Progressing Toward Goals Assessment Summary Pt presents as a low complexity evaluation s/p admit for R TBA anterior. Pt is progressing well and is ready for discharge home with the assistance of friends. Pt will need some assist with dressing at home but states understanding on use of DME to perform. No further OT needs. Frequency of Treatment Frequency Of Treatment Discharge Discharge Recommendations OT Discharge Recommendations Home with Assistance Transportation Needs at Discharge Private Vehicle
--- NOTE | 2023-12-12 10:29 | PC.NURSE ---
Day shift: Discharge instructions gone over with patient. All questions answered, patient stated understanding. PIV removed prior to d/c. Patient's medications that were in the pharmacy returned to patient by pharmacist Duglas prior to discharge. All belongings with patient. ESTRELLITA Regalado gave patient a medical priority boarding pass for [employer] (formerly [employer]). PCT Callie escorted patient to exit via wheelchair where patient's friend to drive patient home.
== END 2023-12-12 10:25 | disposition home or self-care (01) ==
LOC: OR 06:04 → AC 06:12
PROVIDERS: PCP Family Medicine; Referring Provider Orthopaedic Surgery; Visit Provider Orthopaedic Surgery
PROC: (CPT 27130; principal; 2023-12-11 07:45)
DX: M16.11 Unilateral primary osteoarthritis, right hip (principal)
CPT/HCPCS: 27130; 36415; 36592; 73502; 76000; 85014; 85018; 97110; 97116; 97162; 97165; 97530; 97535; C1776; C9290; J0171; J0690; J1100; J2405; J2704

== ENCOUNTER → 2024-01-31 13:19 | Outpatient (CLI) | payer MEDICARE, OTHER, SELFPAY ==
[2024-01-24 11:52] VITALS: BMI 22.7
[2024-01-31 19:33] LABS: Add Manual Diff / Slide Review NO; Basophils Absolute Auto 0 /uL (0-100); Basophils Percent Auto 0.7 % (0-2); Eosinophils Absolute Auto 200 /uL (0-450); Eosinophils Percent Auto 2.9 % (2-4); Hematocrit 34.1 % (36-46); Hemoglobin 11.4 g/dL (12.0-16.0); Lymphocytes Absolute Auto 1300 /uL (1100-4500); Lymphocytes Percent Auto 18.1 % (25-40); Mean Corpuscular HGB Conc 33.5 % (30-36); Mean Corpuscular Hemoglobin 30.7 PG (26-34); Mean Corpuscular Volume 91.7 fL (80-100); Monocytes Absolute Auto 1000 /uL (0-900); Monocytes Percent Auto 13.7 % (3-14); Neutrophils Absolute Auto 4500 /uL (1500-7000); Neutrophils Percent Auto 64.6 % (50-75); Platelet Count 245 X10^3/uL (150-400); Red Blood Cell Count 3.72 X10^6/uL (4.0-5.2); Red Cell Distribution Width 14.3 % (11.6-14.8)
[2024-01-31 19:44] LABS: BUN Creatinine Ratio 37.8 (6-22); Blood Urea Nitrogen 28 mg/dL (7-17); Calcium 9.4 mg/dL (8.4-10.2); Carbon Dioxide 31 mmol/L (22-32); Chloride 103 mmol/L (98-107); Cholesterol 222 mg/dL (140-199); Estimated Glomerular Filt Rate > 60 mL/min (>60); Glucose 94 mg/dL (80-110); HDL Cholesterol 86 mg/dL (40-60); HEMOLYSIS < 15 (0-50); LDL Cholesterol Calculated 120 mg/dL (<100); Potassium 4.7 mmol/L (3.4-5.1); Sodium 136 mmol/L (137-145); Triglycerides 78 mg/dL (35-150)
[2024-01-31 19:52] LABS: Magnesium 2.3 mg/dL (1.6-2.3)
[2024-01-31 20:04] LABS: TSH w/ Reflex to FT4 2.18 uIU/mL (0.47-4.68)
== END ==
PROVIDERS: PCP Family Medicine; Visit Provider Internal Medicine Cardiovascular Disease
DX: I48.91 Unspecified atrial fibrillation (principal); E78.5 Hyperlipidemia, unspecified; I48.20 Chronic atrial fibrillation, unspecified; R06.00 Dyspnea, unspecified; I27.20 Pulmonary hypertension, unspecified; E78.2 Mixed hyperlipidemia; E03.9 Hypothyroidism, unspecified; I10 Essential (primary) hypertension; Z79.899 Other long term (current) drug therapy; Z51.81 Encounter for therapeutic drug level monitoring
CPT/HCPCS: 80048; 80061; 83735; 84443; 85025